=== PATIENT | male | born 1960 | race Caucasian/White ===

== ENCOUNTER → 2023-06-12 14:14 | Outpatient (CLI) | payer OTHER, SELFPAY ==
--- NOTE | 2023-06-12 | DI.US.S_ITS ---
PROCEDURE: US PERIPH VENOUS LOW EXTREM RT INDICATIONS: POST OP EDEMA TECHNIQUE: Real-time imaging, as well as color and pulse Doppler interrogation, were performed of the lower extremity deep veins from the inguinal ligament to the popliteal fossa, with documentation of the visualized calf veins. COMPARISON: None. FINDINGS: The common femoral, femoral, popliteal, and the visualized calf veins are normally compressible, and free of intraluminal thrombus. Color and pulse Doppler demonstrate normal phasic intraluminal flow. There is normal augmentation response to distal compression maneuver. 5.6 cm Mercado's cyst. IMPRESSION: 1. No deep venous thrombosis identified within the right lower extremity. 2 5.6 cm Mercado's cyst. Dictated by: Tang FOLEY Interpreted: Antoine Montoya MD on 06/12/2023 at 15:07 Transcribed by: PHILIP on 06/12/2023 at 15:08 Approved by: Antoine Montoya M.D. on 06/12/2023 at 17:07
== END ==
PROVIDERS: PCP Family Medicine; Referring Provider Physician Assistant; Visit Provider Physician Assistant
DX: M71.21 Synovial cyst of popliteal space [Baker], right knee (principal); R22.41 Localized swelling, mass and lump, right lower limb; Z98.890 Other specified postprocedural states
CPT/HCPCS: 93971